=== PATIENT | male | born 1940 | race Caucasian/White ===

== ENCOUNTER → 2018-02-25 | Outpatient (REF) | payer MEDICARE, OTHER ==
[2018-02-25 17:33] LABS: INR 1.04; PROTHROMBIN TIME 13.7 SECONDS (12.4-14.5)
[2018-02-25 17:34] LABS: PARTIAL THROMBOPLASTIN TIME 32.1 SECONDS (26.8-37.9)
[2018-02-26 10:48] LABS: CARCINOEMBRYONIC ANTIGEN 39.2 NG/ML (<2.5)
== END ==
LOC: M LAB REF 16:52
DX: C77.1 Secondary and unspecified malignant neoplasm of intrathoracic lymph nodes (principal); C79.31 Secondary malignant neoplasm of brain; C34.2 Malignant neoplasm of middle lobe, bronchus or lung
CPT/HCPCS: 82378

== ENCOUNTER → 2018-03-04 | Outpatient (CLI) | payer MEDICARE, OTHER | LOC: M RAD 07:39 | DX: R91.8 Other nonspecific abnormal finding of lung field (principal) | CPT/HCPCS: 78306 ==

== ENCOUNTER 2018-03-08 11:18 | Inpatient (IN) | payer MEDICARE ==
[2018-03-08] MEDS: PANTOPRAZOLE 40MG TAB (PROTONIX) PO (09:00)
[2018-03-08] MEDS ORDERED: LIDOCAINE 1% MDV 20ML VIAL As Ordered ×2 (11:23→15:49)
[2018-03-08] MEDS ORDERED: MIDAZOLAM INJ 2 MG/2 ML VIAL (J2250) As Ordered ×3 (15:02→16:00)
[2018-03-08] MEDS ORDERED: LIDOCAINE 2% MDV 20 ML VIAL As Ordered (15:49)
[2018-03-08] MEDS ORDERED: ONDANSETRON 4MG/2ML VIAL (J2405) IV (16:45)
[2018-03-08] MEDS ORDERED: BISACODYL 10 MG SUPP PR (16:45)
[2018-03-08] MEDS ORDERED: ACETAMINOPHEN TAB 650MG DOSE (2X325MG) PO (16:45)
[2018-03-08] MEDS ORDERED: LEVALBUTEROL 1.25 MG/0.5 ML CONCENTRATE NEB NEB (16:45)
[2018-03-08] MEDS ORDERED: NORCO, ANEXSIA 5/325MG TABLET (HYDROcodone/ACETAMINOPHEN) PO (16:45)
[2018-03-08 17:29] LABS: AMYLASE, BODY FLUID 78 U/L (NOT ESTABLISHED); CHOLESTEROL, BODY FLUID < 50 MG/DL (NOT ESTABLISHED); LDH, BODY FLUID 407 U/L (NOT ESTABLISHED); SOURCE, BODY FLUID ALBUMIN PLEURAL; SOURCE, BODY FLUID AMYLASE PLEURAL; SOURCE, BODY FLUID CHOL PLEURAL; SOURCE, BODY FLUID GLUCOSE PLEURAL; SOURCE, BODY FLUID LDH PLEURAL; SOURCE, BODY FLUID TOT PROTEIN PLEURAL; SOURCE, BODY FLUID TRIG PLEURAL; TOTAL PROTEIN, BODY FLUID 4.6 G/DL (NOT ESTABLISHED); TRIGLYCERIDE, BODY FLUID 6 MG/DL (NOT ESTABLISHED)
[2018-03-08 17:34] LABS: SOURCE, BODY FLUID PLEURAL
[2018-03-08 17:35] LABS: APPEARANCE, BODY FLUID HAZY (CLEAR); PLEURAL FL COLOR PINK (COLORLESS)
[2018-03-08 17:37] LABS: PH BODY FLUID 7.627 UNITS (NOT ESTABLISHED); SOURCE, BODY FLUID pH PLEURAL
[2018-03-08 17:47] LABS: BASO % 0.4 % (0.0-1.0); EOS # 0.3 10^3/uL (0.0-0.50); EOS % 3.8 % (0.0-3.0); HEMATOCRIT 45.4 % (42.0-52.0); HEMOGLOBIN 16.1 g/dl (13.5-17.5); IMMATURE GRANULOCYTE % 0.2 % (0-3.0); LYMPH # 1.4 10^3/uL (1.5-4.5); LYMPH % 15.9 % (24.0-44.0); MEAN CORPUSCULAR HEMOGLOBIN 30.9 pg (27.0-33.0); MEAN CORPUSCULAR HGB CONC 35.5 g/dl (32.0-36.5); MEAN CORPUSCULAR VOLUME 87.1 fl (80.0-96.0); MONO # 1.2 10^3/uL (0.0-0.8); NEUTROPHILS % 66.7 % (36.0-66.0); PLATELET COUNT, AUTOMATED 297 10^3/uL (150-450); RED BLOOD COUNT 5.21 10^6/uL (4.30-6.10); RED CELL DISTRIBUTION WIDTH 14.3 % (11.5-14.5)
[2018-03-08 18:04] LABS: ANION GAP 7 MEQ/L (8-16); BLOOD UREA NITROGEN 20 MG/DL (7-18); CALCIUM LEVEL 8.3 MG/DL (8.8-10.2); CARBON DIOXIDE LEVEL 24 MEQ/L (21-32); CHLORIDE LEVEL 108 MEQ/L (98-107); CREATININE FOR GFR 1.11 MG/DL (0.70-1.30); GLOMERULAR FILTRATION RATE > 60.0 (>42); GLUCOSE, FASTING 100 MG/DL (70-100); LDH LACTATE DEHYDROGENASE 389 U/L (87-241); POTASSIUM SERUM 4.2 MEQ/L (3.5-5.1); SODIUM LEVEL 139 MEQ/L (136-145)
[2018-03-08 18:13] LABS: BF MONONUCLEAR CELL % 96.4 % (0-0); BF POLYMORPHONUCLEAR CELL % 3.6 % (0-0); RBC BODY FLUID 17 10^3/uL (<2); WBC BODY FLUID 1490 /uL (0-10)
[2018-03-08 18:34] LABS: ABG BASE EXCESS -1.3 (-2.0-2.0); ABG HCO3 21.6 MEQ/L (22.0-26.0); ABG O2 SATURATION 88.2 % (95.0-99.0); ABG PARTIAL PRESSURE CO2 31.8 mmHg (35.0-45.0); ABG PARTIAL PRESSURE O2 53.4 mmHg (75.0-100.0); ABG STANDARD HCO3 23.1 MEQ/L (22.0-26.0); ABG TOTAL CO2 22.6 MEQ/L (23.0-31.0)
[2018-03-08] MEDS: PERCOCET 5MG/325MG TAB PO (18:54)
[2018-03-08] MEDS: KCL 20MEQ IN D5/NS 1000ML 1,000 ML IV (18:55)
[2018-03-08 19:15] LABS: BF MONOCYTES/MACROPHAGES 1 %; CC BF DIFF EXAM CYTOCENTRIFUGE; LYMPHOCYTES, BODY FLUID 98 %
[2018-03-08 19:16] LABS: BF DIFF IF INDICATED? YES (NO)
[2018-03-08] MEDS: LEVALBUTEROL 1.25 MG/0.5 ML CONCENTRATE NEB NEB (20:43)
[2018-03-08] MEDS: ASPIRIN 81 MG ENTERIC TAB PO (21:12)
[2018-03-08] MEDS: ATORVASTATIN 20 MG TAB PO (21:12)
[2018-03-08] MEDS: DOCUSATE SODIUM 100 MG CAP PO (21:12)
[2018-03-08] MEDS: LATANOPROST 0.005% OPHTH SOLN 2.5 ML OU (21:13)
[2018-03-08] MEDS: HEPARIN SOD (PORCINE) 5000 UNITS/ML VIAL SC (21:13)
[2018-03-08] MEDS: VITAMIN D 1,000 INTERNATIONAL UNITS TABLET PO (21:13)
[2018-03-09] MEDS: LEVALBUTEROL 1.25 MG/0.5 ML CONCENTRATE NEB NEB ×4 (01:53→19:36)
[2018-03-09] MEDS: PERCOCET 5MG/325MG TAB PO ×2 (04:02→11:45)
[2018-03-09 04:19] LABS: BASO % 0.4 % (0.0-1.0); EOS # 0.3 10^3/uL (0.0-0.50); EOS % 3.7 % (0.0-3.0); HEMATOCRIT 42.7 % (42.0-52.0); HEMOGLOBIN 14.9 g/dl (13.5-17.5); IMMATURE GRANULOCYTE % 0.4 % (0-3.0); LYMPH % 12.3 % (24.0-44.0); MEAN CORPUSCULAR HEMOGLOBIN 30.5 pg (27.0-33.0); MEAN CORPUSCULAR HGB CONC 34.9 g/dl (32.0-36.5); MEAN CORPUSCULAR VOLUME 87.5 fl (80.0-96.0); MONO # 1.2 10^3/uL (0.0-0.8); MONO % 15.1 % (0.0-5.0); NEUTROPHILS # 5.3 10^3/uL (1.8-7.7); NEUTROPHILS % 68.1 % (36.0-66.0); PLATELET COUNT, AUTOMATED 283 10^3/uL (150-450); RED BLOOD COUNT 4.88 10^6/uL (4.30-6.10); RED CELL DISTRIBUTION WIDTH 14.3 % (11.5-14.5); WHITE BLOOD COUNT 7.8 10^3/uL (4.0-10.0)
[2018-03-09 04:26] LABS: ANION GAP 8 MEQ/L (8-16); BLOOD UREA NITROGEN 19 MG/DL (7-18); CALCIUM LEVEL 8.2 MG/DL (8.8-10.2); CARBON DIOXIDE LEVEL 23 MEQ/L (21-32); CHLORIDE LEVEL 110 MEQ/L (98-107); CREATININE FOR GFR 1.01 MG/DL (0.70-1.30); GLOMERULAR FILTRATION RATE > 60.0 (>42); GLUCOSE, FASTING 117 MG/DL (70-100); POTASSIUM SERUM 4.1 MEQ/L (3.5-5.1); SODIUM LEVEL 141 MEQ/L (136-145)
[2018-03-09 05:59] LABS: ABG BASE EXCESS -2.2 (-2.0-2.0); ABG HCO3 22.2 MEQ/L (22.0-26.0); ABG O2 SATURATION 92.5 % (95.0-99.0); ABG PARTIAL PRESSURE CO2 37.4 mmHg (35.0-45.0); ABG PARTIAL PRESSURE O2 66.8 mmHg (75.0-100.0); ABG STANDARD HCO3 22.5 MEQ/L (22.0-26.0); ABG TOTAL CO2 23.4 MEQ/L (23.0-31.0); ABG pH (ARTERIAL) 7.392 UNITS (7.350-7.450)
[2018-03-09] MEDS: KCL 20MEQ IN D5/NS 1000ML 1,000 ML IV ×2 (07:50→21:10)
[2018-03-09] MEDS: FUROSEMIDE 40 MG/4 ML VIAL (J1940) IV (08:15)
[2018-03-09] MEDS: MOM 30ML SUSPENSION UDC PO (09:00)
[2018-03-09] MEDS: LISINOPRIL 5 MG TAB PO (09:00)
[2018-03-09] MEDS: CYANOCOBALAMIN 500 MCG TAB PO (09:00)
[2018-03-09] MEDS: DOCUSATE SODIUM 100 MG CAP PO ×2 (09:00→21:09)
[2018-03-09] MEDS: HEPARIN SOD (PORCINE) 5000 UNITS/ML VIAL SC ×2 (09:00→21:09)
[2018-03-09] MEDS: PANTOPRAZOLE 40MG TAB (PROTONIX) PO (09:00)
[2018-03-09] MEDS: ASCORBIC ACID 500 MG TAB PO (09:00)
[2018-03-09] MEDS: ATORVASTATIN 20 MG TAB PO (21:09)
[2018-03-09] MEDS: ASPIRIN 81 MG ENTERIC TAB PO (21:09)
[2018-03-09] MEDS: VITAMIN D 1,000 INTERNATIONAL UNITS TABLET PO (21:10)
[2018-03-09] MEDS: LATANOPROST 0.005% OPHTH SOLN 2.5 ML OU (21:10)
[2018-03-10] MEDS: LEVALBUTEROL 1.25 MG/0.5 ML CONCENTRATE NEB NEB ×4 (02:00→20:02)
[2018-03-10 04:42] LABS: BASO % 0.3 % (0.0-1.0); EOS # 0.4 10^3/uL (0.0-0.50); EOS % 4.8 % (0.0-3.0); HEMATOCRIT 41.7 % (42.0-52.0); HEMOGLOBIN 14.5 g/dl (13.5-17.5); IMMATURE GRANULOCYTE % 0.3 % (0-3.0); LYMPH # 1.1 10^3/uL (1.5-4.5); LYMPH % 12.7 % (24.0-44.0); MEAN CORPUSCULAR HEMOGLOBIN 30.5 pg (27.0-33.0); MEAN CORPUSCULAR HGB CONC 34.8 g/dl (32.0-36.5); MEAN CORPUSCULAR VOLUME 87.8 fl (80.0-96.0); MONO # 1.2 10^3/uL (0.0-0.8); MONO % 13.3 % (0.0-5.0); NEUTROPHILS # 6.1 10^3/uL (1.8-7.7); NEUTROPHILS % 68.6 % (36.0-66.0); PLATELET COUNT, AUTOMATED 269 10^3/uL (150-450); RED BLOOD COUNT 4.75 10^6/uL (4.30-6.10); RED CELL DISTRIBUTION WIDTH 14.5 % (11.5-14.5); WHITE BLOOD COUNT 8.8 10^3/uL (4.0-10.0)
[2018-03-10 04:54] LABS: ANION GAP 8 MEQ/L (8-16); BLOOD UREA NITROGEN 19 MG/DL (7-18); CALCIUM LEVEL 8.6 MG/DL (8.8-10.2); CARBON DIOXIDE LEVEL 24 MEQ/L (21-32); CHLORIDE LEVEL 109 MEQ/L (98-107); CREATININE FOR GFR 1.02 MG/DL (0.70-1.30); GLOMERULAR FILTRATION RATE > 60.0 (>42); GLUCOSE, FASTING 105 MG/DL (70-100); POTASSIUM SERUM 4.2 MEQ/L (3.5-5.1); SODIUM LEVEL 141 MEQ/L (136-145)
[2018-03-10] MEDS: FUROSEMIDE 40 MG/4 ML VIAL (J1940) IV (07:45)
[2018-03-10] MEDS: MOM 30ML SUSPENSION UDC PO (09:05)
[2018-03-10] MEDS: LISINOPRIL 5 MG TAB PO (09:06)
[2018-03-10] MEDS: HEPARIN SOD (PORCINE) 5000 UNITS/ML VIAL SC ×2 (09:06→21:01)
[2018-03-10] MEDS: CYANOCOBALAMIN 500 MCG TAB PO (09:07)
[2018-03-10] MEDS: DOCUSATE SODIUM 100 MG CAP PO ×2 (09:07→21:01)
[2018-03-10] MEDS: ASCORBIC ACID 500 MG TAB PO (09:07)
[2018-03-10] MEDS: PANTOPRAZOLE 40MG TAB (PROTONIX) PO (09:07)
[2018-03-10] MEDS: PERCOCET 5MG/325MG TAB PO (16:01)
[2018-03-10] MEDS: VITAMIN D 1,000 INTERNATIONAL UNITS TABLET PO (21:01)
[2018-03-10] MEDS: ASPIRIN 81 MG ENTERIC TAB PO (21:01)
[2018-03-10] MEDS: ATORVASTATIN 20 MG TAB PO (21:01)
[2018-03-10] MEDS: LATANOPROST 0.005% OPHTH SOLN 2.5 ML OU (21:02)
[2018-03-11] MEDS: LEVALBUTEROL 1.25 MG/0.5 ML CONCENTRATE NEB NEB ×4 (02:47→20:08)
[2018-03-11 05:26] LABS: BASO % 0.4 % (0.0-1.0); EOS # 0.4 10^3/uL (0.0-0.50); EOS % 4.9 % (0.0-3.0); HEMATOCRIT 43.1 % (42.0-52.0); IMMATURE GRANULOCYTE % 0.4 % (0-3.0); LYMPH # 1.2 10^3/uL (1.5-4.5); LYMPH % 14.7 % (24.0-44.0); MEAN CORPUSCULAR HEMOGLOBIN 30.4 pg (27.0-33.0); MEAN CORPUSCULAR HGB CONC 34.8 g/dl (32.0-36.5); MEAN CORPUSCULAR VOLUME 87.4 fl (80.0-96.0); MONO # 1.1 10^3/uL (0.0-0.8); MONO % 13.2 % (0.0-5.0); NEUTROPHILS # 5.4 10^3/uL (1.8-7.7); NEUTROPHILS % 66.4 % (36.0-66.0); PLATELET COUNT, AUTOMATED 270 10^3/uL (150-450); RED BLOOD COUNT 4.93 10^6/uL (4.30-6.10); RED CELL DISTRIBUTION WIDTH 14.4 % (11.5-14.5); WHITE BLOOD COUNT 8.2 10^3/uL (4.0-10.0)
[2018-03-11 05:34] LABS: ANION GAP 6 MEQ/L (8-16); BLOOD UREA NITROGEN 21 MG/DL (7-18); CALCIUM LEVEL 8.9 MG/DL (8.8-10.2); CARBON DIOXIDE LEVEL 27 MEQ/L (21-32); CHLORIDE LEVEL 105 MEQ/L (98-107); CREATININE FOR GFR 1.03 MG/DL (0.70-1.30); GLOMERULAR FILTRATION RATE > 60.0 (>42); GLUCOSE, FASTING 99 MG/DL (70-100); POTASSIUM SERUM 4.2 MEQ/L (3.5-5.1); SODIUM LEVEL 138 MEQ/L (136-145)
[2018-03-11] MEDS: MOM 30ML SUSPENSION UDC PO (09:00)
[2018-03-11] MEDS: HEPARIN SOD (PORCINE) 5000 UNITS/ML VIAL SC ×2 (09:29→20:18)
[2018-03-11] MEDS: PANTOPRAZOLE 40MG TAB (PROTONIX) PO (09:30)
[2018-03-11] MEDS: FUROSEMIDE 40 MG/4 ML VIAL (J1940) IV (09:30)
[2018-03-11] MEDS: LISINOPRIL 5 MG TAB PO (09:30)
[2018-03-11] MEDS: CYANOCOBALAMIN 500 MCG TAB PO (09:30)
[2018-03-11] MEDS: ASCORBIC ACID 500 MG TAB PO (09:30)
[2018-03-11] MEDS: DOCUSATE SODIUM 100 MG CAP PO ×2 (09:31→20:18)
[2018-03-11] MEDS: LATANOPROST 0.005% OPHTH SOLN 2.5 ML OU (20:17)
[2018-03-11] MEDS: ASPIRIN 81 MG ENTERIC TAB PO (20:18)
[2018-03-11] MEDS: VITAMIN D 1,000 INTERNATIONAL UNITS TABLET PO (20:18)
[2018-03-11] MEDS: ATORVASTATIN 20 MG TAB PO (20:18)
[2018-03-12] MEDS: LEVALBUTEROL 1.25 MG/0.5 ML CONCENTRATE NEB NEB ×2 (02:00→07:17)
[2018-03-12 05:23] LABS: BASO % 0.4 % (0.0-1.0); EOS # 0.4 10^3/uL (0.0-0.50); EOS % 4.5 % (0.0-3.0); HEMATOCRIT 44.3 % (42.0-52.0); HEMOGLOBIN 15.3 g/dl (13.5-17.5); IMMATURE GRANULOCYTE % 0.4 % (0-3.0); LYMPH # 1.4 10^3/uL (1.5-4.5); LYMPH % 16.4 % (24.0-44.0); MEAN CORPUSCULAR HEMOGLOBIN 30.4 pg (27.0-33.0); MEAN CORPUSCULAR HGB CONC 34.5 g/dl (32.0-36.5); MEAN CORPUSCULAR VOLUME 87.9 fl (80.0-96.0); MONO # 1.2 10^3/uL (0.0-0.8); MONO % 14.4 % (0.0-5.0); NEUTROPHILS # 5.5 10^3/uL (1.8-7.7); NEUTROPHILS % 63.9 % (36.0-66.0); PLATELET COUNT, AUTOMATED 302 10^3/uL (150-450); RED BLOOD COUNT 5.04 10^6/uL (4.30-6.10); RED CELL DISTRIBUTION WIDTH 14.3 % (11.5-14.5); WHITE BLOOD COUNT 8.5 10^3/uL (4.0-10.0)
[2018-03-12 05:37] LABS: ANION GAP 5 MEQ/L (8-16); CALCIUM LEVEL 9.3 MG/DL (8.8-10.2); CARBON DIOXIDE LEVEL 29 MEQ/L (21-32); CHLORIDE LEVEL 104 MEQ/L (98-107); CREATININE FOR GFR 1.46 MG/DL (0.70-1.30); GLOMERULAR FILTRATION RATE 49.7 (>42); GLUCOSE, FASTING 101 MG/DL (70-100); POTASSIUM SERUM 4.8 MEQ/L (3.5-5.1); SODIUM LEVEL 138 MEQ/L (136-145)
[2018-03-12 05:54] LABS: BLOOD UREA NITROGEN 33 MG/DL (7-18)
[2018-03-12] MEDS: DOCUSATE SODIUM 100 MG CAP PO (09:46)
[2018-03-12] MEDS: PANTOPRAZOLE 40MG TAB (PROTONIX) PO (09:46)
[2018-03-12] MEDS: CYANOCOBALAMIN 500 MCG TAB PO (09:46)
[2018-03-12] MEDS: LISINOPRIL 5 MG TAB PO (09:46)
[2018-03-12] MEDS: ASCORBIC ACID 500 MG TAB PO (09:46)
[2018-03-12] MEDS: HEPARIN SOD (PORCINE) 5000 UNITS/ML VIAL SC (09:47)
[2018-03-12] MEDS: MOM 30ML SUSPENSION UDC PO (09:47)
== END 2018-03-12 11:44 | disposition home or self-care (01) | DRG 181 ==
LOC: M RADPRO 11:18 → M PCU 16:20
PROC: 0BBD3ZX Excision of Right Middle Lung Lobe, Percutaneous Approach, Diagnostic (ICD-10-PCS; principal; 2018-03-08)
PROC: 0W9930Z Drainage of Right Pleural Cavity with Drainage Device, Percutaneous Approach (ICD-10-PCS; 2018-03-08)
DX: C34.90 Malignant neoplasm of unspecified part of unspecified bronchus or lung (principal); J91.0 Malignant pleural effusion; C79.31 Secondary malignant neoplasm of brain; J95.811 Postprocedural pneumothorax; N40.0 Benign prostatic hyperplasia without lower urinary tract symptoms; I10 Essential (primary) hypertension; I25.10 Atherosclerotic heart disease of native coronary artery without angina pectoris; Z95.9 Presence of cardiac and vascular implant and graft, unspecified; Z79.899 Other long term (current) drug therapy; Z87.891 Personal history of nicotine dependence; Z92.3 Personal history of irradiation

== ENCOUNTER → 2018-03-18 | Outpatient (CLI) | payer MEDICARE | LOC: M SMT 08:37 | DX: J90 Pleural effusion, not elsewhere classified (principal) | CPT/HCPCS: 71046 ==